=== PATIENT | male | born 1975 | race Caucasian/White ===

== ENCOUNTER 2020-02-14 07:31 | Outpatient (CLI) | payer OTHER ==
[2020-02-14] MEDS ORDERED: Iopamidol-370 76% 500 ML 1 ML ONE (09:03)
--- NOTE | 2020-02-14 09:43 | CT ---
CT OF THE ABDOMEN WITH IV CONTRAST: HISTORY: A 44-year-old male with a history of right upper quadrant pain for the past few weeks. COMPARISON: Prior noncontrast CT of the abdomen and pelvis dated 12/18/2013 from [facility]. FINDINGS: There is diffuse fatty liver. There is a small 9 mm arterially enhancing lesion within segment 7 of the right hepatic lobe on image 30 series 2. The gallbladder is surgically absent. Pancreas, adrenal glands, and kidneys are normal-appearing. The spleen is enlarged measuring 14.5 cm , slightly more prominent than on the prior exam. The visualized opacified small and large bowel janie ear within normal limits. There is a normal retrocecal appendix. No definite acute osseous abnormal ity is evident. IMPRESSION: 1. Prominent fatty liver. 2. Small arterially enhancing lesion segment 7 of the right hepatic lobe may reflect a tiny flash-fi lling hemangioma. Alternatively, this could reflect a tiny focal nodular hyperplasia. Arterial enha ncing metastatic disease is felt to be less likely without any given history of prior malignancy. A followup CT of the abdomen utilizing hemangioma protocol in 3-6 months may be helpful to document sta bility. 3. Slightly worsening mild splenomegaly. 4. No additional acute abnormality is seen. POS: [facility]
== END 2020-02-14 07:32 | disposition home or self-care (01) ==
LOC: BICCT 07:31
PROVIDERS: ATTEND Family Medicine
DX: R10.11 Right upper quadrant pain (principal); K76.0 Fatty (change of) liver, not elsewhere classified; R16.1 Splenomegaly, not elsewhere classified; K76.9 Liver disease, unspecified
CPT/HCPCS: 74160; Q9967